=== PATIENT | female | born 1955 | race Hispanic/Latino ===

== ENCOUNTER 2022-01-03 21:57 | Emergency (ER) | payer MEDICARE, OTHER ==
[2022-01-03 22:39] LABS: #Eosinphils 0.2 thou/uL (0.0-0.7); #Lymphocytes 1.5 thou/uL (1.20-3.40); #Monocytes 0.5 thou/uL (0.11-0.59); #Neutrophils 5.5 thou/uL (1.40-6.50); %Basophils 0.4 % (0.0-1.0); %Eosinophils 2.3 % (0.0-10.0); %Lymphocytes 19.5 % (21.0-51.0); %Neutrophils 70.8 % (42.0-75.0); Hemoglobin 14.4 g/dL (12.0-16.0); Mean Corpuscular HGB CONC 33.7 g/dL (32.0-36.0); Mean Corpuscular Hemoglobin 29.8 pg (27.0-31.0); Mean Corpuscular Volume 88.4 fL (78.0-98.0); Platelet Count 161 thou/uL (130-400); RBC Distribution Width 12.3 % (11.5-14.5); Red Blood Cell (RBC) Count 4.84 mill/uL (4.20-5.40); White Blood Cell (WBC) Count 7.7 thou/uL (4.8-10.8)
[2022-01-03 23:02] LABS: ALT (SGPT) 19 U/L (8-55); AST (SGOT) 14 U/L (5-34); Albumin 4.2 g/dL (3.4-4.8); Alkaline Phosphatase 160 U/L (40-110); Anion Gap 15 mmol/L (10-20); BUN (Urea Nitrogen) 20 mg/dL (9.8-20.1); Bilirubin, Total 0.5 mg/dL (0.2-1.2); Calc. Creatinine Clearance 0 mL/min (70-130); Calcium 9.3 mg/dL (7.8-10.44); Carbon Dioxide 23 mmol/L (23-31); Chloride 106 mmol/L (98-107); Estimated GFR 76; Globulin 3.1 g/dL (2.4-3.5); Glucose 256 mg/dL (80-115); Potassium 3.7 mmol/L (3.5-5.1); Protein, Total 7.3 g/dL (5.8-8.1); Sodium 140 mmol/L (136-145)
[2022-01-03 23:13] LABS: Bacteria/HPF None Seen HPF (None Seen); Bilirubin Negative (Negative); Blood, Urine 3+ (Negative); Calcium Oxalate Crystals 2+ HPF (None Seen); Clarity Turbid (Clear); Glucose, Urine (Dipstick) Greater than 1000 mg/dL (Negative); Ketone, Urine Negative (Negative); Leukocyte 75 Leu/uL (Negative); Nitrite Negative (Negative); Protein, Urine (Dipstick) Negative (Neg-Trace); RBC/HPF Greater than 50 HPF (0-3); Specific Gravity, Urine 1.031 (1.002-1.036); Squamous Epithelial 0-3 HPF (0-3); Urobilinogen Normal mg/dL (Less than 2)
[2022-01-04] MEDS ORDERED: Ondansetron PF 4 MG/2 ML Vial ONE (00:44)
[2022-01-04] MEDS ORDERED: Fentanyl 100 MCG/2 ML VIAL ONE (00:44)
[2022-01-04] MEDS ORDERED: Ketorolac Tromethamine 30 MG/ML VIAL ONE (00:44)
[2022-01-04 01:04] LABS: CK (CPK) 64 U/L (29-168); Lipase 64 U/L (8-78)
== END 2022-01-04 02:12 | disposition home or self-care (01) ==
LOC: ERS 21:57
DX: N13.2 Hydronephrosis with renal and ureteral calculous obstruction (principal); I10 Essential (primary) hypertension; E11.9 Type 2 diabetes mellitus without complications; E78.00 Pure hypercholesterolemia, unspecified; E03.9 Hypothyroidism, unspecified; Z79.899 Other long term (current) drug therapy; Z79.84 Long term (current) use of oral hypoglycemic drugs
CPT/HCPCS: 36415; 74176; 80053; 81003; 81015; 82550; 83690; 84484; 85025; 87086; 93005; 96361; 96374; 96375; J1885; J2405; J3010

== ENCOUNTER 2022-08-03 23:12 | Inpatient (IN) | payer MEDICARE, OTHER ==
[2022-08-03 23:35] LABS: #Eosinphils 0.2 thou/uL (0.0-0.7); #Lymphocytes 1.7 thou/uL (1.20-3.40); #Monocytes 0.4 thou/uL (0.11-0.59); %Basophils 0.2 % (0.0-1.0); %Lymphocytes 31.5 % (21.0-51.0); %Monocytes 8.2 % (0.0-10.0); %Neutrophils 56.1 % (42.0-75.0); Hemoglobin 14.9 g/dL (12.0-16.0); Mean Corpuscular HGB CONC 34.3 g/dL (32.0-36.0); Mean Corpuscular Volume 87.5 fl (78.0-98.0); Mean Platelet Volume 7.6 fL (7.4-10.4); Platelet Count 160 10x3/uL (130-400); RBC Distribution Width 12.1 % (11.5-14.5); Red Blood Cell (RBC) Count 4.96 mill/uL (4.20-5.40); White Blood Cell (WBC) Count 5.4 10x3/uL (4.8-10.8)
[2022-08-03 23:56] LABS: ALT (SGPT) 19 U/L (8-55); AST (SGOT) 16 U/L (5-34); Albumin 4.2 g/dL (3.4-4.8); Alkaline Phosphatase 150 U/L (40-110); Anion Gap 14 mmol/L (10-20); BUN (Urea Nitrogen) 15 mg/dL (9.8-20.1); Bilirubin, Total 0.5 mg/dL (0.2-1.2); Calc. Creatinine Clearance 0 mL/min (70-130); Calcium 9.4 mg/dL (7.8-10.44); Carbon Dioxide 23 mmol/L (23-31); Chloride 109 mmol/L (98-107); Estimated GFR 83; Globulin 3.1 g/dL (2.4-3.5); Glucose 134 mg/dL (80-115); Potassium 3.7 mmol/L (3.5-5.1); Protein, Total 7.3 g/dL (5.8-8.1); Sodium 142 mmol/L (136-145)
[2022-08-03] MEDS ORDERED: Nitroglycerin 2% Ointment 1 INCH/1 GM Packet ONE (23:59)
[2022-08-03] MEDS ORDERED: Aspirin Chewable 81 MG TAB ONE (23:59)
[2022-08-04] MEDS ORDERED: hydrALAZINE 20 MG/ML VIAL ONE (02:00)
[2022-08-04 03:08] LABS: Troponin I Less than 0.010 ng/mL (< 0.028)
[2022-08-04] MEDS ORDERED: Famotidine 20 MG TAB PO PRN (03:11)
[2022-08-04] MEDS ORDERED: Ondansetron PF 4 MG/2 ML Vial IVP PRN (03:11)
[2022-08-04] MEDS ORDERED: Acetaminophen 325 MG TAB PO PRN (03:11)
[2022-08-04] MEDS ORDERED: Dextrose 50% Abboject 50 ML SYRINGE SLOW IVP PRN (03:11)
[2022-08-04] MEDS ORDERED: Dextrose 5% in Water 1,000 ML IV PRN (03:11)
[2022-08-04] MEDS ORDERED: Ondansetron ODT 4 MG TAB PO PRN (03:11)
[2022-08-04 03:14] LABS: Bilirubin Negative (Negative); Blood, Urine Negative (Negative); Clarity Clear (Clear); Glucose, Urine (Dipstick) Normal (Negative); Ketone, Urine Negative (Negative); Leukocyte Negative Leu/uL (Negative); Nitrite Negative (Negative); Protein, Urine (Dipstick) Negative (Neg-Trace); Specific Gravity, Urine 1.025 (1.002-1.036); Urobilinogen Normal mg/dL (Less than 2); pH, Urine 5.5 (5.0-9.0)
[2022-08-04] MEDS ORDERED: HumaLOG 300 UNITS/3 ML VIAL SC PRN ×2 (03:15)
[2022-08-04] MEDS ORDERED: Nitroglycerin 0.4 MG TAB (25 Tab Bottle) SL PRN (03:15)
[2022-08-04] MEDS ORDERED: Famotidine 20 MG TAB PO SCH (04:45)
[2022-08-04] MEDS ORDERED: Famotidine/PF 20 mg/2ml Vial ONE (05:22)
[2022-08-04] MEDS ORDERED: Famotidine 20 MG TAB ONE (05:22)
[2022-08-04 07:25] LABS: Cardiac Risk 4.5 (Less than 4.5)
[2022-08-04 07:29] LABS: Troponin I Less than 0.010 ng/mL (< 0.028)
[2022-08-04] MEDS ORDERED: Aspirin Chewable 81 MG TAB ONE (08:06)
[2022-08-04] MEDS: Aspirin Chewable 81 MG TAB PO SCH (08:07)
[2022-08-04] MEDS ORDERED: Regadenoson 0.4 MG/5 ML SYRINGE ONE (09:19)
[2022-08-04 09:26] VITALS: BMI 36.1
[2022-08-04] MEDS ORDERED: ALPRAZolam 0.25 MG TAB PO PRN (09:52)
[2022-08-04] MEDS ORDERED: Hydrochlorothiazide 25 MG TAB PO SCH (10:00)
[2022-08-04] MEDS: Atorvastatin Calcium 40 MG TAB PO SCH (20:09)
[2022-08-05] MEDS: Levothyroxine Sodium 100 MCG TAB PO SCH (05:35)
[2022-08-05 06:54] LABS: #Eosinphils 0.2 thou/uL (0.0-0.7); #Monocytes 0.5 thou/uL (0.11-0.59); #Neutrophils 3.9 thou/uL (1.40-6.50); %Basophils 0.4 % (0.0-1.0); %Eosinophils 3.7 % (0.0-10.0); %Lymphocytes 30.3 % (21.0-51.0); %Monocytes 7.9 % (0.0-10.0); %Neutrophils 57.7 % (42.0-75.0); Hemoglobin 16.2 g/dL (12.0-16.0); Mean Corpuscular HGB CONC 34.9 g/dL (32.0-36.0); Mean Corpuscular Hemoglobin 30.6 pg (27.0-31.0); Mean Corpuscular Volume 87.5 fl (78.0-98.0); Mean Platelet Volume 8.1 fL (7.4-10.4); Platelet Count 173 10x3/uL (130-400); RBC Distribution Width 12.4 % (11.5-14.5); Red Blood Cell (RBC) Count 5.31 mill/uL (4.20-5.40); White Blood Cell (WBC) Count 6.7 10x3/uL (4.8-10.8)
[2022-08-05 07:20] LABS: ALT (SGPT) 19 U/L (8-55); AST (SGOT) 17 U/L (5-34); Albumin 4.3 g/dL (3.4-4.8); Alkaline Phosphatase 142 U/L (40-110); Anion Gap 15 mmol/L (10-20); BUN (Urea Nitrogen) 12 mg/dL (9.8-20.1); Calc. Creatinine Clearance 101 mL/min (70-130); Calcium 9.4 mg/dL (7.8-10.44); Carbon Dioxide 22 mmol/L (23-31); Chloride 104 mmol/L (98-107); Estimated GFR 80; Globulin 3.4 g/dL (2.4-3.5); Glucose 135 mg/dL (80-115); Potassium 3.9 mmol/L (3.5-5.1); Protein, Total 7.7 g/dL (5.8-8.1); Sodium 137 mmol/L (136-145)
[2022-08-05] MEDS: Aspirin Chewable 81 MG TAB PO SCH (10:18)
[2022-08-05] MEDS: Multivit, Therapeutic 1 TAB PO SCH (10:18)
[2022-08-05] MEDS: Losartan 25 MG TAB PO SCH (10:18)
[2022-08-05] MEDS ORDERED: Communication Order-Pharmacy FS SCH (16:00)
[2022-08-05] MEDS: Atorvastatin Calcium 40 MG TAB PO SCH (20:36)
[2022-08-06 05:13] LABS: #Eosinphils 0.2 thou/uL (0.0-0.7); #Lymphocytes 1.6 thou/uL (1.20-3.40); #Monocytes 0.5 thou/uL (0.11-0.59); %Eosinophils 4.2 % (0.0-10.0); %Monocytes 10.2 % (0.0-10.0); %Neutrophils 55.7 % (42.0-75.0); Hemoglobin 14.4 g/dL (12.0-16.0); Mean Corpuscular HGB CONC 32.8 g/dL (32.0-36.0); Mean Corpuscular Hemoglobin 28.9 pg (27.0-31.0); Mean Corpuscular Volume 88.3 fl (78.0-98.0); Platelet Count 146 10x3/uL (130-400); RBC Distribution Width 12.2 % (11.5-14.5); Red Blood Cell (RBC) Count 4.96 mill/uL (4.20-5.40); White Blood Cell (WBC) Count 5.4 10x3/uL (4.8-10.8)
[2022-08-06 05:38] LABS: Anion Gap 14 mmol/L (10-20); BUN (Urea Nitrogen) 18 mg/dL (9.8-20.1); Calc. Creatinine Clearance 103 mL/min (70-130); Calcium 9.1 mg/dL (7.8-10.44); Carbon Dioxide 22 mmol/L (23-31); Chloride 106 mmol/L (98-107); Estimated GFR 81; Glucose 121 mg/dL (80-115); Potassium 3.9 mmol/L (3.5-5.1); Sodium 138 mmol/L (136-145)
[2022-08-06] MEDS: Levothyroxine Sodium 100 MCG TAB PO SCH (05:45)
[2022-08-06] MEDS ORDERED: Sodium Chloride 0.9% 1,000 ML IV SCH (06:00)
[2022-08-06] MEDS: Multivit, Therapeutic 1 TAB PO SCH (06:16)
[2022-08-06] MEDS: Losartan 25 MG TAB PO SCH (06:16)
[2022-08-06] MEDS: Aspirin Chewable 81 MG TAB PO SCH (06:16)
[2022-08-06] MEDS ORDERED: Heparin 10,000 UNITS/ 10 ML VIAL ONE (06:35)
[2022-08-06] MEDS ORDERED: Nitroglycerin 50 MG/250 ML BOT 0 ML ONE (06:35)
[2022-08-06] MEDS ORDERED: Lidocaine 1% (PF) 30 ML VIAL ONE (06:35)
[2022-08-06] MEDS ORDERED: Atropine Sulfate 1 mg/10 ml Syringe ONE (06:35)
[2022-08-06] MEDS ORDERED: fentaNYL 50 mcg/mL 1 mL Vial ONE (07:20)
[2022-08-06] MEDS ORDERED: Midazolam HCl 2 mg/2 ml Vial ONE (07:20)
[2022-08-06] MEDS ORDERED: Nitroglycerin 0.4 MG TAB (25 Tab Bottle) SL PRN (08:07)
[2022-08-06] MEDS ORDERED: Sodium Chloride 0.9% 200 ML IV PRN (08:07)
[2022-08-06] MEDS: Carvedilol 3.125 MG TAB PO SCH (16:21)
[2022-08-06] MEDS: Atorvastatin Calcium 40 MG TAB PO SCH (19:50)
[2022-08-07 05:47] LABS: #Eosinphils 0.1 thou/uL (0.0-0.7); #Lymphocytes 0.8 thou/uL (1.20-3.40); #Monocytes 0.7 thou/uL (0.11-0.59); #Neutrophils 4.9 thou/uL (1.40-6.50); %Basophils 0.7 % (0.0-1.0); %Eosinophils 1.7 % (0.0-10.0); %Lymphocytes 11.5 % (21.0-51.0); %Monocytes 10.6 % (0.0-10.0); %Neutrophils 75.4 % (42.0-75.0); Hemoglobin 13.6 g/dL (12.0-16.0); Mean Corpuscular HGB CONC 33.5 g/dL (32.0-36.0); Mean Corpuscular Hemoglobin 29.4 pg (27.0-31.0); Mean Corpuscular Volume 87.7 fl (78.0-98.0); Mean Platelet Volume 8.2 fL (7.4-10.4); Platelet Count 114 10x3/uL (130-400); RBC Distribution Width 12.2 % (11.5-14.5); Red Blood Cell (RBC) Count 4.63 mill/uL (4.20-5.40); White Blood Cell (WBC) Count 6.5 10x3/uL (4.8-10.8)
[2022-08-07] MEDS: Levothyroxine Sodium 100 MCG TAB PO SCH (05:49)
[2022-08-07 06:13] LABS: Anion Gap 13 mmol/L (10-20); BUN (Urea Nitrogen) 14 mg/dL (9.8-20.1); Calc. Creatinine Clearance 111 mL/min (70-130); Calcium 8.8 mg/dL (7.8-10.44); Carbon Dioxide 22 mmol/L (23-31); Chloride 105 mmol/L (98-107); Estimated GFR 90; Glucose 127 mg/dL (80-115); Potassium 3.7 mmol/L (3.5-5.1); Sodium 136 mmol/L (136-145)
[2022-08-07] MEDS: Carvedilol 3.125 MG TAB PO SCH (08:57)
[2022-08-07] MEDS: Losartan 25 MG TAB PO SCH (08:57)
[2022-08-07] MEDS: Multivit, Therapeutic 1 TAB PO SCH (08:57)
[2022-08-07] MEDS: Aspirin Chewable 81 MG TAB PO SCH (08:57)
[2022-08-07 09:03] VITALS: BP 131/81; TEMP 98.1
[2022-08-07] MEDS ORDERED: Potassium Chloride 20 MEQ TAB PO SCH (09:15)
[2022-08-07] MEDS ORDERED: Carvedilol 3.125 MG TAB PO SCH (17:00)
[2022-08-07] MEDS ORDERED: Carvedilol 6.25 MG TAB PO SCH (17:00)
[2022-08-08] MEDS ORDERED: Losartan 25 MG TAB PO SCH (09:00)
[2022-08-08] MEDS ORDERED: Ezetimibe 10 MG TAB PO SCH (09:00)
== END 2022-08-07 11:53 | disposition home or self-care (01) | DRG 287 ==
LOC: ERS 23:12 → ERHOLD 08-04 02:06 → 2SW 08-04 08:30 → OBSVTOIN 08-05 14:59
PROVIDERS: ADMIT Internal Medicine; ATTEND Family Medicine
PROC: 4A023N7 Measurement of Cardiac Sampling and Pressure, Left Heart, Percutaneous Approach (ICD-10-PCS; principal; 2022-08-06)
PROC: B2111ZZ Fluoroscopy of Multiple Coronary Arteries using Low Osmolar Contrast (ICD-10-PCS; 2022-08-06)
PROC: B2151ZZ Fluoroscopy of Left Heart using Low Osmolar Contrast (ICD-10-PCS; 2022-08-06)
DX: I25.118 Atherosclerotic heart disease of native coronary artery with other forms of angina pectoris (principal); E11.9 Type 2 diabetes mellitus without complications; E78.5 Hyperlipidemia, unspecified; I10 Essential (primary) hypertension; E78.00 Pure hypercholesterolemia, unspecified; E66.9 Obesity, unspecified; E03.9 Hypothyroidism, unspecified; Z90.710 Acquired absence of both cervix and uterus; Z98.890 Other specified postprocedural states; Z82.49 Family history of ischemic heart disease and other diseases of the circulatory system; Z68.36 Body mass index [BMI] 36.0-36.9, adult; Z88.0 Allergy status to penicillin; Z91.011 Allergy to milk products; Z79.899 Other long term (current) drug therapy
CPT/HCPCS: 36415; 36416; 71045; 78452; 80048; 80053; 80061; 81003; 83036; 83690; 83880; 84484; 85025; 85379; 93005; 93017; 93306; 93458; 96374; 97139; 99152; 99153; A9500; C1769; J0360; J0461; J1644; J1650; J1815; J2001; J2250; J2785; J3010; J7050; S0028

== ENCOUNTER 2022-08-13 09:30 | Inpatient (IN) | payer MEDICARE, OTHER ==
[2022-08-13 09:19] LABS: Hemoglobin 13.8 g/dL (12.0-15.5); Mean Corpuscular HGB CONC 33.2 g/dL (32.0-36.0); Mean Corpuscular Hemoglobin 28.3 pg (27.0-33.0); Mean Corpuscular Volume 85.4 fl (81.6-98.3); Mean Platelet Volume 10.4 fl (7.4-10.4); Platelet Count 174 10x3/uL (150-450); RBC Distribution Width 12.8 % (11.5-14.5); Red Blood Cell (RBC) Count 4.87 10x6/uL (3.90-5.03); White Blood Cell (WBC) Count 5.3 10x3/uL (3.5-10.5)
[2022-08-13 09:43] LABS: Anion Gap 14 mmol/L (10-20); BUN (Urea Nitrogen) 15 mg/dL (9.8-20.1); Calc. Creatinine Clearance 0 mL/min (70-130); Carbon Dioxide 27 mmol/L (23-31); Chloride 106 mmol/L (98-107); Estimated GFR 85; Glucose 160 mg/dL (80-115); Potassium 3.9 mmol/L (3.5-5.1); Sodium 143 mmol/L (136-145)
[2022-08-14] MEDS ORDERED: Albumin 5% 500 ML ONE (06:33)
[2022-08-14] MEDS ORDERED: Heparin 10,000 UNITS/1 ML VIAL 30,000 UNITS in Sodium Chloride 0.9% 1,000 ML FS SCH (06:45)
[2022-08-14] MEDS ORDERED: Fentanyl 250 MCG/5 ML VIAL ONE ×2 (06:50)
[2022-08-14] MEDS ORDERED: Midazolam HCl 2 mg/2 ml Vial ONE (06:51)
[2022-08-14] MEDS ORDERED: Milrinone 10 MG/10 ML VIAL ONE (06:52)
[2022-08-14] MEDS ORDERED: Clindamycin/D5W 900 mg/50 ml Premix Bag ONE (07:19)
[2022-08-14] MEDS ORDERED: Insulin Regular 300 UNITS/3 ML VIAL ONE (07:27)
[2022-08-14] MEDS ORDERED: Aminocaproic Acid 5 GM/20 ML VIAL ONE (07:39)
[2022-08-14] MEDS ORDERED: Magnesium 5 GM/10 ML VIAL ONE (07:39)
[2022-08-14] MEDS ORDERED: Heparin 30,000 units/30 ml VIAL ONE (07:39)
[2022-08-14] MEDS ORDERED: Protamine Sulfate 250 MG/25 ML VIAL ONE (07:39)
[2022-08-14] MEDS ORDERED: Rocuronium Bromide 10 MG/ML (10ML VIAL) ONE (07:39)
[2022-08-14] MEDS ORDERED: Calcium Chloride 1 GM/10 ML Abboject SYRINGE ONE (07:39)
[2022-08-14] MEDS ORDERED: Vancomycin 1 GM VIAL ONE (07:39)
[2022-08-14] MEDS ORDERED: Lidocaine 2% PF 100 mg/5 ml Syringe ONE (07:39)
[2022-08-14] MEDS ORDERED: Potassium Chloride 60 MEQ/30 ML VIAL ONE (07:39)
[2022-08-14] MEDS ORDERED: Papaverine 60 MG/2 ML VIAL ONE (07:39)
[2022-08-14] MEDS ORDERED: Lidocaine 1% PF 5 ML VIAL ONE (07:39)
[2022-08-14] MEDS ORDERED: Heparin 5,000 UNITS/ML VIAL ONE (07:39)
[2022-08-14] MEDS ORDERED: Norepinephrine 4 MG/4 ML VIAL ONE (07:39)
[2022-08-14] MEDS ORDERED: Sodium Bicarb 50 MEQ/50 ML VIAL ONE (07:39)
[2022-08-14] MEDS ORDERED: Cardioplegic Soln 1,000 ML BAG ONE (07:39)
[2022-08-14] MEDS ORDERED: Thrombin 5000 UNITS/5 ML VIAL ONE (07:39)
[2022-08-14] MEDS ORDERED: PROPOFOL 200 MG/20 ML VIAL ONE (07:39)
[2022-08-14] MEDS ORDERED: hydrALAZINE 20 MG/ML VIAL SLOW IVP PRN (10:38)
[2022-08-14] MEDS ORDERED: Mag-Al 1200 mg/1200 mg/30 ML UDCUP PO PRN (10:38)
[2022-08-14] MEDS ORDERED: Hetastarch 6% 500 ML 500 ML IVPB PRN (10:38)
[2022-08-14] MEDS ORDERED: Bisacodyl 5 MG TAB PO PRN (10:38)
[2022-08-14] MEDS ORDERED: Ipratropium/Albuterol 3 ML NEB NEB PRN (10:38)
[2022-08-14] MEDS ORDERED: Nitroglycerin 50 MG/250 ML BOT 250 ML IVPB PRN (10:38)
[2022-08-14] MEDS ORDERED: DOPamine 400 MG/D5W 250 ML 250 ML IVPB PRN (10:38)
[2022-08-14] MEDS ORDERED: Bisacodyl 10 MG SUPP PR PRN (10:38)
[2022-08-14] MEDS ORDERED: niCARdipine 25 MG in Sodium Chloride 0.9% 250 ML 250 ML IVPB PRN (10:38)
[2022-08-14] MEDS ORDERED: Post-Op Insulin Drip Protocol IVPB ONE (10:38)
[2022-08-14] MEDS ORDERED: Morphine 2 MG/ML VIAL SLOW IVP PRN (10:38)
[2022-08-14] MEDS ORDERED: Ondansetron PF 4 MG/2 ML Vial IVP PRN (10:38)
[2022-08-14] MEDS ORDERED: fentaNYL 50 mcg/mL 1 mL Vial SLOW IVP PRN (10:38)
[2022-08-14] MEDS ORDERED: Dextrose 5% in Water 1,000 ML IV PRN (10:45)
[2022-08-14] MEDS ORDERED: HUMULIN R 100 UNITS in Sodium Chloride 0.9% 100 ML IVPB SCH (10:45)
[2022-08-14] MEDS ORDERED: Dextrose 50% Abboject 50 ML SYRINGE SLOW IVP PRN (10:45)
[2022-08-14] MEDS ORDERED: NOREPINEPHRINE 8 MG/250 ML-D5W 250 ML ONE (10:50)
[2022-08-14 10:54] LABS: Actual Bicarbonate (HCO3a) 23.6 mEq/L (22-28); Base Excess (BEa) -1.4 mEq/L (-2.0 to +3.0); CO2 Tension 40.9 mmHg (35.0-45.0); Calcium, Ionized (arterial) 1.12 mmol/L (1.12-1.30); Carboxyhemoglobin (COHb) 0.3 gm% (0.0-3.0); Hematocrit-ABG 34 % (36.0-47.0); Hemoglobin (Hb) 11.4 g/dL (12.0-16.0); O2 Tension (PaO2), arterial 167.9 mmHg (> 80.0); Potassium - ABG Lab 3.34 mmol/L (3.70-5.30); pH, Arterial 7.379 (7.35-7.45)
[2022-08-14 10:56] LABS: ALV-art Gradient 137.475 mmHg (0-20); Puncture Site Arterial Line
[2022-08-14] MEDS: Lactated Ringer's 1,000 ML IV SCH (11:18)
[2022-08-14] MEDS: NOREPINEPHRINE 8 MG/250 ML-D5W 250 ML IVPB PRN (11:19)
[2022-08-14 11:26] LABS: #Basophils 0.1 thou/uL (0.0-0.2); #Eosinphils 0.2 thou/uL (0.0-0.7); #Lymphocytes 1.1 thou/uL (1.20-3.40); #Monocytes 0.1 thou/uL (0.11-0.59); #Neutrophils 5.6 thou/uL (1.40-6.50); %Basophils 0.7 % (0.0-1.0); %Eosinophils 3.4 % (0.0-10.0); %Lymphocytes 15.8 % (21.0-51.0); %Monocytes 1.8 % (0.0-10.0); %Neutrophils 78.3 % (42.0-75.0); Mean Corpuscular HGB CONC 35.6 g/dL (32.0-36.0); Mean Corpuscular Hemoglobin 30.6 pg (27.0-31.0); Platelet Count 131 10x3/uL (130-400); RBC Distribution Width 12.1 % (11.5-14.5); Red Blood Cell (RBC) Count 3.59 mill/uL (4.20-5.40); White Blood Cell (WBC) Count 7.1 10x3/uL (4.8-10.8)
[2022-08-14 11:39] LABS: INR-International Normal Ratio 1.4; PTT 34.1 sec (22.9-36.1); Prothrombin Time 17.4 sec (12.0-14.7)
[2022-08-14] MEDS: Ketorolac Tromethamine 30 MG/ML VIAL IVP SCH ×3 (11:45→23:47)
[2022-08-14 11:46] LABS: Anion Gap 11 mmol/L (10-20); BUN (Urea Nitrogen) 13 mg/dL (9.8-20.1); Calc. Creatinine Clearance 125 mL/min (70-130); Carbon Dioxide 22 mmol/L (23-31); Chloride 113 mmol/L (98-107); Estimated GFR 96; Glucose 160 mg/dL (80-115); Potassium 3.3 mmol/L (3.5-5.1); Sodium 143 mmol/L (136-145)
[2022-08-14] MEDS: Potassium Chloride 20 MEQ/100 ML PREMIX BAG IVPB PRN ×2 (11:53→18:01)
[2022-08-14 12:02] VITALS: BMI 37.3
[2022-08-14] MEDS: Clindamycin/D5W 900 MG in Premix Bag 1 BAG IVPB SCH ×2 (13:20→18:01)
[2022-08-14 16:35] LABS: Hemoglobin 11.3 g/dL (12.0-16.0)
[2022-08-14] MEDS: fentaNYL 50 mcg/mL 1 mL Vial SLOW IVP PRN ×3 (16:56→23:48)
[2022-08-14 16:57] LABS: Potassium 3.6 mmol/L (3.5-5.1)
[2022-08-14 17:00] LABS: Actual Bicarbonate (HCO3a) 20.3 mEq/L (22-28); Base Excess (BEa) -2.3 mEq/L (-2.0 to +3.0); CO2 Tension 28.5 mmHg (35.0-45.0); Calcium, Ionized (arterial) 1.09 mmol/L (1.12-1.30); Carboxyhemoglobin (COHb) 0.2 gm% (0.0-3.0); Hematocrit-ABG 34 % (36.0-47.0); Hemoglobin (Hb) 11.6 g/dL (12.0-16.0); O2 Tension (PaO2), arterial 120.3 mmHg (> 80.0); Potassium - ABG Lab 3.51 mmol/L (3.70-5.30); pH, Arterial 7.471 (7.35-7.45)
[2022-08-14 17:10] LABS: ALV-art Gradient 129.275 mmHg (0-20); Puncture Site Arterial Line
[2022-08-14] MEDS ORDERED: Famotidine/PF 20 mg/2ml Vial SLOW IVP SCH (21:00)
[2022-08-14] MEDS: Atorvastatin Calcium 20 MG TAB PO SCH (21:44)
[2022-08-15] MEDS: Clindamycin/D5W 900 MG in Premix Bag 1 BAG IVPB SCH ×2 (01:31→07:28)
[2022-08-15 04:49] LABS: Mean Corpuscular HGB CONC 34.4 g/dL (32.0-36.0); Mean Corpuscular Hemoglobin 30.5 pg (27.0-31.0); Mean Corpuscular Volume 88.6 fl (78.0-98.0); RBC Distribution Width 12.3 % (11.5-14.5); Red Blood Cell (RBC) Count 3.29 mill/uL (4.20-5.40); White Blood Cell (WBC) Count 4.8 10x3/uL (4.8-10.8)
[2022-08-15 05:04] LABS: Anion Gap 13 mmol/L (10-20); BUN (Urea Nitrogen) 14 mg/dL (9.8-20.1); Calc. Creatinine Clearance 133 mL/min (70-130); Calcium 8.2 mg/dL (7.8-10.44); Carbon Dioxide 22 mmol/L (23-31); Chloride 111 mmol/L (98-107); Estimated GFR 97; Glucose 117 mg/dL (80-115); Potassium 3.9 mmol/L (3.5-5.1); Sodium 142 mmol/L (136-145)
[2022-08-15 05:38] LABS: #Lymphocytes 0.7 thou/uL (1.20-3.40); #Monocytes 0.4 thou/uL (0.11-0.59); #Neutrophils 3.7 thou/uL (1.40-6.50); %Eosinophils 0.4 % (0.0-10.0); %Monocytes 8.1 % (0.0-10.0); %Neutrophils 76.4 % (42.0-75.0); Large Platelets SLIGHT; MDiff Complete? YES; Mean Platelet Volume 8.4 fL (7.4-10.4); Platelet Count 95 10x3/uL (130-400); Platelet Morphology Comment Appears Decreased; RBC Morphology Normal
[2022-08-15] MEDS: Lactated Ringer's 1,000 ML IV SCH (05:54)
[2022-08-15] MEDS: Ketorolac Tromethamine 30 MG/ML VIAL IVP SCH ×4 (05:55→23:17)
[2022-08-15] MEDS: fentaNYL 50 mcg/mL 1 mL Vial SLOW IVP PRN (05:55)
[2022-08-15] MEDS: Levothyroxine Sodium 100 MCG TAB PO SCH (07:28)
[2022-08-15] MEDS: Magnesium 2 GM/50 ML(in water) 2 GM in Premix Bag 1 BAG IVPB SCH (08:46)
[2022-08-15] MEDS: Polyethylene Glycol 3350 17 GM Packet PO SCH (08:46)
[2022-08-15] MEDS: Famotidine 20 MG TAB PO SCH ×2 (08:46→20:55)
[2022-08-15] MEDS: Aspirin 325 MG TAB PO SCH (08:46)
[2022-08-15] MEDS ORDERED: Insulin Glargine 30 UNITS/0.3 ML VIAL SC PRN ×2 (09:27→10:44)
[2022-08-15] MEDS: NOREPINEPHRINE 8 MG/250 ML-D5W 250 ML IVPB PRN (12:14)
[2022-08-15] MEDS ORDERED: NOREPINEPHRINE 8 MG/250 ML-D5W 250 ML IVPB SCH (12:30)
[2022-08-15] MEDS: Insulin Regular 300 UNITS/3 ML VIAL SC PRN ×2 (16:02→20:56)
[2022-08-15] MEDS: HYDROcodone/Acetaminophen 5/325 mg Tablet PO PRN (18:45)
[2022-08-15] MEDS: Atorvastatin Calcium 20 MG TAB PO SCH (20:55)
[2022-08-16] MEDS: Insulin Regular 300 UNITS/3 ML VIAL SC PRN ×5 (01:08→20:40)
[2022-08-16] MEDS: HYDROcodone/Acetaminophen 5/325 mg Tablet PO PRN ×4 (01:11→20:30)
[2022-08-16] MEDS: Acetaminophen 325 MG TAB PO PRN (02:04)
[2022-08-16 04:40] LABS: #Eosinphils 0.1 thou/uL (0.0-0.7); #Lymphocytes 1.3 thou/uL (1.20-3.40); #Monocytes 0.8 thou/uL (0.11-0.59); #Neutrophils 5.3 thou/uL (1.40-6.50); %Basophils 0.2 % (0.0-1.0); %Eosinophils 1.4 % (0.0-10.0); %Lymphocytes 17.1 % (21.0-51.0); %Monocytes 10.2 % (0.0-10.0); %Neutrophils 71.1 % (42.0-75.0); Hemoglobin 9.9 g/dL (12.0-16.0); Mean Corpuscular HGB CONC 34.5 g/dL (32.0-36.0); Mean Corpuscular Hemoglobin 30.1 pg (27.0-31.0); Mean Corpuscular Volume 87.3 fl (78.0-98.0); Mean Platelet Volume 8.5 fL (7.4-10.4); Platelet Count 116 10x3/uL (130-400); RBC Distribution Width 12.4 % (11.5-14.5); Red Blood Cell (RBC) Count 3.29 mill/uL (4.20-5.40); White Blood Cell (WBC) Count 7.4 10x3/uL (4.8-10.8)
[2022-08-16 04:49] LABS: Anion Gap 8 mmol/L (10-20); BUN (Urea Nitrogen) 16 mg/dL (9.8-20.1); Calc. Creatinine Clearance 116 mL/min (70-130); Calcium 7.8 mg/dL (7.8-10.44); Carbon Dioxide 25 mmol/L (23-31); Chloride 104 mmol/L (98-107); Estimated GFR 94; Glucose 184 mg/dL (80-115); Potassium 3.4 mmol/L (3.5-5.1); Sodium 134 mmol/L (136-145)
[2022-08-16] MEDS: Ketorolac Tromethamine 30 MG/ML VIAL IVP SCH ×4 (07:02→23:32)
[2022-08-16] MEDS: Levothyroxine Sodium 100 MCG TAB PO SCH (07:02)
[2022-08-16] MEDS: Potassium Chloride 20 MEQ/100 ML PREMIX BAG IVPB PRN (07:03)
[2022-08-16] MEDS: Polyethylene Glycol 3350 17 GM Packet PO SCH (08:30)
[2022-08-16] MEDS: Aspirin 325 MG TAB PO SCH (08:31)
[2022-08-16] MEDS: Magnesium 2 GM/50 ML(in water) 2 GM in Premix Bag 1 BAG IVPB SCH (08:31)
[2022-08-16] MEDS: Famotidine 20 MG TAB PO SCH ×2 (08:31→20:30)
[2022-08-16] MEDS ORDERED: Nitroglycerin 0.4 MG TAB (25 Tab Bottle) SL PRN (17:11)
[2022-08-16] MEDS: Atorvastatin Calcium 20 MG TAB PO SCH (20:30)
[2022-08-17] MEDS: Ketorolac Tromethamine 30 MG/ML VIAL IVP SCH ×2 (05:25→11:47)
[2022-08-17] MEDS: Levothyroxine Sodium 100 MCG TAB PO SCH (05:25)
[2022-08-17] MEDS: Furosemide 40 MG TAB PO SCH (09:20)
[2022-08-17] MEDS: Potassium Chloride 20 MEQ TAB PO SCH (09:20)
[2022-08-17] MEDS: Famotidine 20 MG TAB PO SCH ×2 (09:20→21:33)
[2022-08-17] MEDS: Polyethylene Glycol 3350 17 GM Packet PO SCH (09:20)
[2022-08-17] MEDS: Aspirin 325 MG TAB PO SCH (09:20)
[2022-08-17] MEDS ORDERED: Calamine/Zinc Oxide 177 ML LOTION TP PRN (11:15)
[2022-08-17] MEDS: Insulin Regular 300 UNITS/3 ML VIAL SC PRN ×2 (11:49→16:46)
[2022-08-17] MEDS: Carvedilol 3.125 MG TAB PO SCH (16:46)
[2022-08-17] MEDS: Atorvastatin Calcium 20 MG TAB PO SCH (21:32)
[2022-08-17] MEDS: HYDROcodone/Acetaminophen 5/325 mg Tablet PO PRN (21:33)
[2022-08-17] MEDS: Guaifenesin DM 100-10/5 ML UDCUP PO PRN (21:34)
[2022-08-18] MEDS: Levothyroxine Sodium 100 MCG TAB PO SCH (05:55)
[2022-08-18] MEDS: HYDROcodone/Acetaminophen 5/325 mg Tablet PO PRN ×4 (05:58→22:02)
[2022-08-18] MEDS: Polyethylene Glycol 3350 17 GM Packet PO SCH (08:45)
[2022-08-18] MEDS: Potassium Chloride 20 MEQ TAB PO SCH (08:46)
[2022-08-18] MEDS: Furosemide 40 MG TAB PO SCH (08:46)
[2022-08-18] MEDS: Carvedilol 3.125 MG TAB PO SCH ×2 (08:46→16:13)
[2022-08-18] MEDS: metFORMIN 500 MG TAB PO SCH (08:46)
[2022-08-18] MEDS: Famotidine 20 MG TAB PO SCH ×2 (08:46→22:02)
[2022-08-18] MEDS: Aspirin 325 MG TAB PO SCH (08:46)
[2022-08-18] MEDS: Guaifenesin DM 100-10/5 ML UDCUP PO PRN (10:17)
[2022-08-18] MEDS: Insulin Regular 300 UNITS/3 ML VIAL SC PRN (17:34)
[2022-08-18] MEDS: Atorvastatin Calcium 20 MG TAB PO SCH (22:02)
[2022-08-19] MEDS: Levothyroxine Sodium 100 MCG TAB PO SCH (05:02)
[2022-08-19 07:31] VITALS: BP 168/78; TEMP 97.7
[2022-08-19] MEDS: Polyethylene Glycol 3350 17 GM Packet PO SCH (08:14)
[2022-08-19] MEDS: Potassium Chloride 20 MEQ TAB PO SCH (08:14)
[2022-08-19] MEDS: Carvedilol 3.125 MG TAB PO SCH (08:15)
[2022-08-19] MEDS: metFORMIN 500 MG TAB PO SCH (08:15)
[2022-08-19] MEDS: Aspirin 325 MG TAB PO SCH (08:15)
[2022-08-19] MEDS: Famotidine 20 MG TAB PO SCH (08:15)
[2022-08-19] MEDS: Furosemide 40 MG TAB PO SCH (08:15)
[2022-08-19] MEDS: Acetaminophen 325 MG TAB PO PRN (08:18)
== END 2022-08-19 11:30 | disposition home or self-care (01) | DRG 236 ==
LOC: SURG A 08-14 05:44 → CCU 08-14 10:40 → 2NO 08-16 17:10
PROVIDERS: ADMIT Thoracic Surgery (Cardiothoracic Vascular Surgery); ATTEND Thoracic Surgery (Cardiothoracic Vascular Surgery)
PROC: 021109W Bypass Coronary Artery, Two Arteries from Aorta with Autologous Venous Tissue, Open Approach (ICD-10-PCS; principal; 2022-08-14)
PROC: 02100Z9 Bypass Coronary Artery, One Artery from Left Internal Mammary, Open Approach (ICD-10-PCS; 2022-08-14)
PROC: 06BQ0ZZ Excision of Left Saphenous Vein, Open Approach (ICD-10-PCS; 2022-08-14)
PROC: 5A1221Z Performance of Cardiac Output, Continuous (ICD-10-PCS; 2022-08-14)
PROC: 02L70CK Occlusion of Left Atrial Appendage with Extraluminal Device, Open Approach (ICD-10-PCS; 2022-08-14)
PROC: 3E033XZ Introduction of Vasopressor into Peripheral Vein, Percutaneous Approach (ICD-10-PCS; 2022-08-14)
DX: I25.10 Atherosclerotic heart disease of native coronary artery without angina pectoris (principal); D62 Acute posthemorrhagic anemia; E11.9 Type 2 diabetes mellitus without complications; I10 Essential (primary) hypertension; E78.5 Hyperlipidemia, unspecified; E03.9 Hypothyroidism, unspecified; Z90.710 Acquired absence of both cervix and uterus; Z87.442 Personal history of urinary calculi; Z79.899 Other long term (current) drug therapy; Z79.82 Long term (current) use of aspirin; Z79.890 Hormone replacement therapy; Z79.84 Long term (current) use of oral hypoglycemic drugs
CPT/HCPCS: 36416; 36430; 71045; 80048; 82805; 82947; 85025; 85027; 85610; 85730; 86850; 86900; 86901; 93005; 93010; 93798; 94002; 97139; C1713; C1751; C1776; J0360; J1642; J1644; J1815; J1885; J2001; J2250; J2260; J2405; J2440; J2704; J2720; J3010; J3370; J3475; J3480; J3490; J7120; P9045; S0017; S0028

== ENCOUNTER 2022-12-26 15:34 | Observation (INO) | payer MEDICARE, OTHER ==
[2022-12-26 16:20] LABS: #Eosinphils 0.2 thou/uL (0.0-0.7); #Monocytes 0.4 thou/uL (0.11-0.59); #Neutrophils 3.2 thou/uL (1.40-6.50); %Basophils 0.2 % (0.0-1.0); %Eosinophils 4.2 % (0.0-10.0); %Lymphocytes 23.6 % (21.0-51.0); %Monocytes 8.3 % (0.0-10.0); %Neutrophils 63.5 % (42.0-75.0); Hemoglobin 12.7 g/dL (12.0-16.0); Mean Corpuscular HGB CONC 32.6 g/dL (32.0-36.0); Mean Corpuscular Hemoglobin 26.8 pg (27.0-31.0); Mean Corpuscular Volume 82.3 fl (78.0-98.0); Mean Platelet Volume 9.9 fL (7.4-10.4); Platelet Count 153 10x3/uL (130-400); RBC Distribution Width 14.6 % (11.5-14.5); Red Blood Cell (RBC) Count 4.74 mill/uL (4.20-5.40); White Blood Cell (WBC) Count 5.1 10x3/uL (4.8-10.8)
[2022-12-26 16:44] LABS: ALT (SGPT) 27 U/L (8-55); AST (SGOT) 21 U/L (5-34); Alkaline Phosphatase 171 U/L (40-110); Anion Gap 13 mmol/L (10-20); BUN (Urea Nitrogen) 16 mg/dL (9.8-20.1); Bilirubin, Total 0.5 mg/dL (0.2-1.2); Calc. Creatinine Clearance 0 mL/min (70-130); Calcium 9.3 mg/dL (7.8-10.44); Carbon Dioxide 21 mmol/L (23-31); Chloride 111 mmol/L (98-107); Estimated GFR 74; Globulin 2.5 g/dL (2.4-3.5); Glucose 132 mg/dL (80-115); Potassium 3.6 mmol/L (3.5-5.1); Protein, Total 6.5 g/dL (5.8-8.1); Sodium 141 mmol/L (136-145)
[2022-12-26 16:48] LABS: Troponin I Less than 0.010 ng/mL (< 0.028)
[2022-12-26] MEDS ORDERED: Ondansetron ODT 4 MG TAB PO PRN (18:28)
[2022-12-26] MEDS ORDERED: Acetaminophen 325 MG TAB PO PRN (18:28)
[2022-12-26] MEDS ORDERED: Glucagon 1 MG/ML KIT IM PRN (18:31)
[2022-12-26] MEDS ORDERED: Dextrose 5% in Water 1,000 ML IV PRN (18:31)
[2022-12-26] MEDS ORDERED: Morphine 4 MG/ML VIAL SLOW IVP PRN (18:31)
[2022-12-26] MEDS ORDERED: Dextrose 50% Abboject 50 ML SYRINGE SLOW IVP PRN (18:31)
[2022-12-26] MEDS ORDERED: HumaLOG 300 UNITS/3 ML VIAL SC PRN (18:31)
[2022-12-26] MEDS ORDERED: Albuterol 200 PUFF (6.7GM INHALER) INH PRN (19:08)
[2022-12-26] MEDS ORDERED: ALPRAZolam 0.25 MG TAB PO PRN (19:08)
[2022-12-26] MEDS ORDERED: traMADol HCl 50 MG TAB PO PRN (19:08)
[2022-12-26 19:42] LABS: Troponin I Less than 0.010 ng/mL (< 0.028)
[2022-12-26 20:49] VITALS: BMI 33.2
[2022-12-26] MEDS: Carvedilol 6.25 MG TAB PO SCH (21:12)
[2022-12-26 22:54] LABS: Troponin I Less than 0.010 ng/mL (< 0.028)
[2022-12-27 05:42] LABS: #Eosinphils 0.2 thou/uL (0.0-0.7); #Monocytes 0.4 thou/uL (0.11-0.59); #Neutrophils 2.8 thou/uL (1.40-6.50); %Basophils 0.6 % (0.0-1.0); %Lymphocytes 27.8 % (21.0-51.0); %Monocytes 9.1 % (0.0-10.0); %Neutrophils 58.3 % (42.0-75.0); Hematocrit 37.9 % (36.0-47.0); Hemoglobin 12.3 g/dL (12.0-16.0); Mean Corpuscular HGB CONC 32.5 g/dL (32.0-36.0); Mean Corpuscular Hemoglobin 26.9 pg (27.0-31.0); Mean Corpuscular Volume 82.8 fl (78.0-98.0); Mean Platelet Volume 9.7 fL (7.4-10.4); Platelet Count 122 10x3/uL (130-400); RBC Distribution Width 14.6 % (11.5-14.5); Red Blood Cell (RBC) Count 4.58 mill/uL (4.20-5.40); White Blood Cell (WBC) Count 4.7 10x3/uL (4.8-10.8)
[2022-12-27 05:53] LABS: Hemoglobin A1c 5.8 % (4.0-6.0)
[2022-12-27] MEDS ORDERED: Levothyroxine Sodium 100 MCG TAB PO SCH (06:00)
[2022-12-27 06:04] LABS: Anion Gap 12 mmol/L (10-20); BUN (Urea Nitrogen) 14 mg/dL (9.8-20.1); Calc. Creatinine Clearance 107 mL/min (70-130); Calcium 8.8 mg/dL (7.8-10.44); Carbon Dioxide 25 mmol/L (23-31); Chloride 107 mmol/L (98-107); Estimated GFR 94; Glucose 108 mg/dL (80-115); Potassium 3.6 mmol/L (3.5-5.1); Sodium 140 mmol/L (136-145)
[2022-12-27] MEDS: Carvedilol 6.25 MG TAB PO SCH (08:06)
[2022-12-27 08:08] VITALS: TEMP 97.9
[2022-12-27] MEDS ORDERED: Aspirin 81 mg Enteric Coated Tablet PO SCH (09:00)
[2022-12-27] MEDS ORDERED: Multivit, Therapeutic 1 TAB PO SCH (09:00)
[2022-12-27] MEDS ORDERED: Atorvastatin Calcium 40 MG TAB PO SCH (09:00)
[2022-12-27] MEDS ORDERED: Losartan 25 MG TAB PO SCH ×2 (09:00)
[2022-12-27 12:07] VITALS: BP 144/65
[2022-12-27] MEDS ORDERED: Regadenoson 0.4 MG/5 ML SYRINGE ONE (12:53)
== END 2022-12-27 17:02 | disposition home or self-care (01) ==
LOC: SUATTDRO 15:34 → ERS 15:34 → 2SW 18:04
PROVIDERS: ADMIT Family Medicine; ATTEND Internal Medicine
DX: M25.519 Pain in unspecified shoulder (principal); I10 Essential (primary) hypertension; E03.9 Hypothyroidism, unspecified; E11.9 Type 2 diabetes mellitus without complications; I25.10 Atherosclerotic heart disease of native coronary artery without angina pectoris; Z88.0 Allergy status to penicillin; Z91.011 Allergy to milk products; Z79.82 Long term (current) use of aspirin; Z79.890 Hormone replacement therapy; Z79.899 Other long term (current) drug therapy; Z79.84 Long term (current) use of oral hypoglycemic drugs; Z90.710 Acquired absence of both cervix and uterus; Z95.1 Presence of aortocoronary bypass graft
CPT/HCPCS: 71045; 78452; 80048; 80053; 82962 ×2; 83036; 84443; 84484 ×2; 85025 ×2; 93005; 93017; 96372; 99285; A9500; G0378 ×3; J2785; 36415; 36416; J1650